=== PATIENT | male | born 1960 | race African-American/Black ===

== ENCOUNTER → 2019-09-14 | Outpatient (CLI) | payer OTHER ==
--- NOTE | 2019-09-14 16:25 | PCVCIMAG ---
APPROVED REPORT Study performed: 09/14/2019 08:40:06 EXAM: Comprehensive 2D, Doppler, and color-flow Echocardiogram Patient Location: Echo lab Room #: 2Status: routine BSA: 2.56 HR: 69 bpm Rhythm: NSR Other Information Study Quality: Adequate Risk Factors: Cardiac Risk Factors: HTN, DM Indications Abnormal ECG Diabetes Cardiomyopathy Hypertension/HDD 2D Dimensions IVSd: 10.51 (7-11mm)LVOT Diam: 24.07 (18-24mm) LVDd: 50.94 mm PWd: 11.18 (7-11mm)Ascending Ao: 33.86 (22-36mm) LVDs: 33.74 (25-40mm) Left Atrium: 38.25 (27-40mm) Aortic Root: 32.46 mm LV Single Plane 4CH: 47.81 % LV Single Plane 2CH: 48.00 % Biplane EF: 48.1 % Volumes Left Atrial Volume (Systole) Single Plane 4CH: 51.83 mLSingle Plane 2CH: 49.33 mL Biplane LA Volume: 54.00 mLLA ESV Index: 21.00 mL/m2 Aortic Valve AoV Peak Binu.: 1.15 m/s AO Peak Gr.: 5.86 mmHgLVOT Max P.10 mmHg LVOT Max V: 0.72 m/s ABNER Vmax: 2.87 cm2 Mitral Valve E/A Ratio: 0.8 MV Decel. Time: 209.35 ms MV E Max Binu.: 0.47 m/s MV A Binu.: 0.56 m/s IVRT: 141.87 ms TDI E/Lateral E': 9.40E/Medial E': 5.88 Medial E' Binu.: 0.08 m/s Lateral E' Binu.: 0.05 m/s Pulmonary Valve PV Peak Binu.: 0.76 m/sPV Peak Gr.: 2.30 mmHg Pulmonary Vein P Vein S: 0.49 m/sP Vein A: 0.67 m/s P Vein D: 0.47 m/sP Vein A Dur.: 100.3 msec P Vein S/D Ratio: 1.04 Tricuspid Valve TR Peak Binu.: 1.76 m/s TR Peak Gr.: 12.36 mmHg TV Vmax: 0.54 m/sPA Pressure: 19.40 mmHg Left Ventricle The left ventricle is normal size. There is normal LV segmental wall motion. Borderline concentric left ventricular hypertrophy. Left ventricular systolic function is normal. The left ventricular ejection fraction is within the normal range. LVEF is 45-50%. Right Ventricle The right ventricle is normal size. The right ventricular systolic function is normal. Atria The left atrium size is normal. The right atrium size is normal. Aortic Valve The aortic valve is normal in structure. No aortic regurgitation is present. There is no aortic valvular stenosis. Mitral Valve The mitral valve is normal in structure. There is no mitral valve regurgitation noted. No evidence of mitral valve stenosis. Tricuspid Valve The tricuspid valve is normal in structure. Trace tricuspid regurgitation. No pulmonary hypertension. Pulmonic Valve The pulmonary valve is normal in structure. There is no pulmonic valvular regurgitation. Great Vessels The aortic root is normal in size. The ascending aorta is normal in size. Aortic arch is normal in caliber. IVC is normal in size and collapses >50% with inspiration. Pericardium There is no pericardial effusion. There is no pleural effusion. <Conclusion> The left ventricle is normal size. Borderline concentric left ventricular hypertrophy. LVEF is 45-50%. The right ventricle is normal size. The left atrium size is normal. The aortic valve is normal in structure. There is no mitral valve regurgitation noted. Trace tricuspid regurgitation. No pulmonary hypertension. The aortic root is normal in size. There is no pericardial effusion.
== END | disposition home or self-care (01) ==
LOC: PCVCIMAG 08:46
PROVIDERS: ATTEND Internal Medicine Cardiovascular Disease
DX: I11.9 Hypertensive heart disease without heart failure (principal); I45.10 Unspecified right bundle-branch block; I42.9 Cardiomyopathy, unspecified; E11.9 Type 2 diabetes mellitus without complications; Z82.49 Family history of ischemic heart disease and other diseases of the circulatory system; Z83.3 Family history of diabetes mellitus
CPT/HCPCS: 93306